=== PATIENT | female | born 1970 ===

== ENCOUNTER 2020-09-05 10:15 | Inpatient (IN) | payer OTHER ==
[~2020-09-05] VITALS: Ht 152.4 cm; Wt 70.8 kg
[2020-09-05] MEDS ORDERED: [UNRECOGNIZED DRUG - OTHER] (10:25)
[2020-09-05] MEDS ORDERED: METFORMIN PO (10:25)
[2020-09-05] MEDS ORDERED: ENALAPRIL MALEAT5 MG PO (10:26)
[2020-09-05] MEDS ORDERED: ATORVASTATIN CA10 MG PO (10:26)
[2020-09-05] MEDS ORDERED: FORTAMET1000 MG PO (10:27)
[2020-09-11] MEDS ORDERED: ALPHA LIPOIC A600 MG (11:42)
[2020-09-13] MEDS ORDERED: IBUPROFEN800 MG PO (07:49)
[2020-09-13] MEDS ORDERED: TRAMADOL HCL50 MG PO (07:49)
== END 2020-09-13 12:21 | disposition home health service (06) | DRG 743 ==
LOC: O/R 09-11 08:10 → SURH 09-11 10:15 → SURG-SUITE 09-11 14:55
PROVIDERS: ADMIT Obstetrics & Gynecology Gynecology; ATTEND Obstetrics & Gynecology Gynecology
PROC: 0UB74ZX Excision of Bilateral Fallopian Tubes, Percutaneous Endoscopic Approach, Diagnostic (ICD-10-PCS; 2020-09-11)
PROC: 0UT94ZZ Resection of Uterus, Percutaneous Endoscopic Approach (ICD-10-PCS; principal; 2020-09-11 13:00)
DX: D25.1 Intramural leiomyoma of uterus (principal); N80.0 Endometriosis of uterus; N92.0 Excessive and frequent menstruation with regular cycle; N72 Inflammatory disease of cervix uteri; I10 Essential (primary) hypertension; E11.9 Type 2 diabetes mellitus without complications; Z79.4 Long term (current) use of insulin